=== PATIENT | male | born 1980 | race African-American/Black ===

== ENCOUNTER → 2025-02-28 | Outpatient (CLI) | payer OTHER ==
[2025-02-28 09:16] LABS: PLATELET COUNT (AUTO) 209 K/uL (150-450); RED BLOOD CELL COUNT(AUTO) 4.64 MIL/uL (4.50-5.90); RED CELL DISTRIBUTION WIDTH 14.3 % (11.5-14.5); WHITE BLOOD COUNT (AUTO) 5.7 K/uL (4.5-11.0)
== END | disposition home or self-care (01) ==
LOC: MSR 08:20
PROVIDERS: ATTEND Chiropractor
DX: M77.32 Calcaneal spur, left foot (principal); M77.31 Calcaneal spur, right foot; R59.0 Localized enlarged lymph nodes; Z00.00 Encounter for general adult medical examination without abnormal findings
CPT/HCPCS: 85025